=== PATIENT | female | born 1980 | race Caucasian/White ===

== ENCOUNTER 2016-08-23 00:01 | Inpatient (IN) | payer BC, MEDICAID ==
[2016-08-23] MEDS ORDERED: BUTORPHANOL TARTRATE 2 MG/ML VIAL IV PRN (00:03)
[2016-08-23] MEDS ORDERED: RINGERS SOLUTION,LACTATED 1,000 ML IV ONE (00:03)
[2016-08-23] MEDS ORDERED: INSULIN REGULAR HUMAN REC 100 UNITS in NORMAL SALINE 100 ML IV PRN (00:03)
[2016-08-23] MEDS ORDERED: ONDANSETRON HCL/PF 2 MG/ML VIAL IV PRN ×2 (00:03→10:17)
[2016-08-23] MEDS ORDERED: OXYTOCIN/DEXTROSE 5%-WATER 30 UNITS/500 ML BAG IV ONE ×3 (00:03→15:06)
[2016-08-23] MEDS ORDERED: LIDOCAINE HCL 50 ML VIAL PERI PRN (00:03)
--- OUTSIDE RECORDS SUMMARY | 2016-08-23 00:07 | XMS REPORT | Continuity of Care Document ---
:1980 Author Organization [facility] ([facility]) Address [place] [address] Phone [phone] Care Team Providers Name Role Phone Provider, No-Primary Care Primary Care Provider Unavailable Source Comments This disclosure is being made pursuant to the Care Everywhere program, applicable federal and state laws, and may not contain all informaitonavailable regarding this patient.[facility] ([facility]) Active Allergies and Adverse Reactions No Known Allergies Current Medications Prescription Sig. Disp. Refills Start Date End Date Status MULTIVIT Take by mouth. Active &MINERALS/FERROUS FUM (MULTI VITAMIN PO) desogestrel-ethinyl Take 1 Tab by mouth Active estradiol (RECLIPSEN, daily. 28,) tablet oxyCODONE-acetaminoph Take 1 Tab by mouth 10 Tab 0 04/02/2014 Active en 5-325 mg per every 4 hours as tablet needed. DO NOT EXCEED 3,000 MG ACETAMINOPHEN PER DAY FROM ALL SOURCES Indications: PAIN ibuprofen 800 mg Take 1 Tab by mouth 20 Tab 0 04/02/2014 Active tablet every 6 hours as needed for Pain. DO NOT EXCEED 3,200 MG IBUPROFEN PER DAY FROM ALL SOURCES Indications: PAIN Active Problems Not on file Social History Tobacco Use Types Packs/Day Years Used Date Current Every Day Smoker Cigarettes 0.5 15 Smokeless Tobacco: Never Used Tobacco Cessation:Ready to Quit: No; Counseling Given: No Comments: Last Filed Vital Signs Vital Sign Reading Time Taken Blood Pressure 119/68 04/02/2014 11:38 AM [employer] Pulse 85 04/02/2014 11:15 AM [employer] Temperature 36.9 C (98.4 F) 04/02/2014 11:15 AM [employer] Respiratory Rate - - Height 1.676 m (5' 5.98") 04/02/2014 11:15 AM [employer] Weight 69.4 kg (153 lb) 04/02/2014 11:15 AM [employer] Body Mass Index 24.71 04/02/2014 11:15 AM [employer] Oxygen Saturation 100% 04/02/2014 11:15 AM [employer] Plan of Care Health Maintenance Due Date Last Done Comments Hepatitis B Vaccine (1 of 3 - Primary Series) 1980 Tdap Vaccine 1993 Lipid Disorder Screening 02/09/2000 MMR Vaccine 02/09/2000 Td Vaccine 02/09/2000 Varicella Vaccine (1 of 2 - Adult - No Evidence of 02/09/2000 Immunity) Pneumococcal Vaccine (1 of 1 - PPSV23) 2001 Cervical Cancer Screening 02/09/2012 Influenza Vaccine: Seasonal (#1) 12/21/2015 Results from Last 3 Months Not on file
[2016-08-23 00:17] LABS: Hematocrit 33.7 % (37.0-47.0); Hemoglobin 11.8 gm/dL (12.5-16.0); Mean Cell Volume 88.5 fl (78-100); Mean Platelet Volume 8.9 fl (6.0-9.5); Neutrophil % 68.2 % (42-75.0); Platelet Count 186 K/mm3 (150-450); Red Blood Count 3.81 M/mm3 (4.2-5.4); Red Cell Distribution Width 12.3 % (11.5-14.0); White Blood Count 11.8 K/mm3 (4.0-10.5)
[2016-08-23 00:34] LABS: Albumin * 2.7 gm/dl (3.4-5.0); Anion Gap 13.6 mmol/L (6.8-13.8); BUN/Creatinine Ratio 20.6 (9.0-21.6); Bilirubin, Total 0.4 mg/dL (0.0-1.1); Calcium * 9.3 mg/dL (7.9-10.9); Carbon Dioxide 22.2 mmol/L (24-32.6); Potassium 3.8 mmol/L (3.4-4.6); Total Protein 7.4 gm/dL (6.2-8.2)
[2016-08-23] MEDS: RINGERS SOLUTION,LACTATED 1,000 ML IV PRN ×2 (00:47→11:08)
[2016-08-23] MEDS ORDERED: PENICILLIN G POTASSIUM 5 MILLIONUNT in DEXTROSE 5 % IN WATER 100 ML IV ONE ×2 (01:00)
[2016-08-23] MEDS: PENICILLIN G POTASSIUM 2.5 MILLIONUNT in DEXTROSE 5 % IN WATER 100 ML IV SCH ×6 (04:52→13:23)
--- NOTE | 2016-08-23 08:15 | PN ---
Progess Note - Interim Narrative: 08/23/16 08:13 Subjective-doing well complains of contractions 2 out of 10 Objective- SVE- 3-//-2, amniotomy performed with no fluid FHTs- 140s, moderate variability, positive accelerations, no decelerations [place]- 3-4 minutes on 18 milliunits of Pitocin Assessment and plan- Labor-induction Preeclampsia with our severe features Gestational diabetes-continue to monitor blood sugars Continue current plan of care.
[2016-08-23] MEDS ORDERED: NALOXONE HCL 1 MG/1 ML SYRG IV PRN (10:17)
[2016-08-23] MEDS ORDERED: BUPIVACAINE HCL/0.9 % NACL/PF 250 ML EP PRN (10:17)
[2016-08-23] MEDS ORDERED: fentaNYL CITRATE/PF 50 MCG/ML AMPUL IT SCH (10:30)
--- NOTE | 2016-08-23 12:16 | OR ---
Anesthesia Procedure Note - Anesthesia Procedure Note Narrative: Vital Signs - Last Taken Temp 36 C L 08/13/15 12:00 Pulse Resp BP 128/78 08/13/15 12:40 Pulse Ox 08/23/16 12:15 ANESTHESIA PROCEDURE NOTE Date of Procedure: 08/23/2016 Time of procedure: 10:30. Performed by: Felipe Herron CRNA Threshing Department Supervisor: None. Preprocedure diagnosis: Active labor. Post procedure diagnosis: Same. Procedure: Insertion of labor epidural. Indications: The patient is a 36 -year-old multigravida female in active labor requesting labor epidural for pain management. Findings: See below. Details of the procedure: The patient was placed in a sitting position. Back was prepped with DuraPrep. Patient was then draped in a sterile fashion. Lidocaine 1% was infiltrated to the skin and subcutaneous tissues at the level of the L3 4 interspace. The epidural space was identified using a 18-gauge Tuohy needle with [id number] technique. 20 mcg fentanyl was given intrathecally using a 27 ga. spinal needle. Epidural catheter was inserted without difficulty. Negative test dose was elicited using 5 mL of 1.5% preservative-free lidocaine plus epinephrine 1 200,000. The epidural catheter was then taped and secured in place. EBL: Minimal. Fluids: N/A. Specimen: N/A. Post procedure condition: The patient tolerated the procedure well. No complications were noted. Thank you for this consultation. Peters CRNA
--- NOTE | 2016-08-23 15:02 | OR ---
History for MU Definition: * The number of deliveries resulting in a live the patient experienced prior to current hospitalization * The previous delivery of live twins or any live multiple gestation is considered one live event. *If primagravida or nulliparous is documented select zero for the number of previous live births. Spontaneous Vaginal Delivery Viable male with APGARS of 9 at 1 min and 9 at 5 min. she delivered at 1443. Presentation was PRO. The left anterior shoulder delivered without difficulty followed by the posterior shoulder with a nuchal arm and the remainder of the baby. Spontaneous cry was noted. The baby was placed on the maternal abdomen. The cord was clamped and cut after approximately 1 minute. Weight: 6 pounds 15.9 ounces or 3174 g Placenta was delivered spontaneously and intact. A first degree right periurethral laceration was noted and hemostatic without repair. Estimated blood loss: 200 ml Mother and baby tolerated delivery well. Live Events: 1
[2016-08-23] MEDS ORDERED: GLYCERIN/WITCH HAZEL LEAF 40 APPL BOX TP PRN (15:06)
[2016-08-23] MEDS ORDERED: SENNOSIDES 8.6 MG TABLET PO PRN (15:06)
[2016-08-23] MEDS ORDERED: BISACODYL 10 MG SUPP.RECT RC PRN (15:06)
[2016-08-23] MEDS ORDERED: HYDROCORTISONE 30 APPL TUBE TP PRN (15:06)
[2016-08-23] MEDS ORDERED: BENZOCAINE/MENTHOL 81 SPRAY CAN TP PRN (15:06)
[2016-08-23] MEDS ORDERED: oxyCODONE HCL/ACETAMINOPHEN 1 TAB TABLET PO PRN (15:06)
[2016-08-23] MEDS: oxyCODONE HCL/ACETAMINOPHEN 1 TAB TABLET PO PRN ×2 (15:53→21:02)
[2016-08-23] MEDS: DOCUSATE SODIUM 100 MG CAPSULE PO SCH (21:01)
[2016-08-24] MEDS: oxyCODONE HCL/ACETAMINOPHEN 1 TAB TABLET PO PRN ×4 (00:33→20:09)
[2016-08-24] MEDS: IBUPROFEN 800 MG TABLET PO PRN ×2 (05:20→15:13)
--- NOTE | 2016-08-24 08:52 | PN ---
Progess Note - Interim Narrative: 08/24/16 08:51 progress note Subjective: The patient is doing well. She is ambulating, voiding, tolerating by mouth. She has minimal pain and moderate lochia. Objective: General: No acute distress Abdomen: Soft, nontender, fundus is firm just below the umbilicus Extremities: minimal edema, nontender to palpation Assessment and plan: day 1 Feeding: Breast Pain: Controlled with by mouth medication Gestational diabetes: Fasting blood sugar 71 and this morning, will monitor postprandials today Routine care.
[2016-08-24] MEDS: DOCUSATE SODIUM 100 MG CAPSULE PO SCH ×2 (09:20→20:09)
[2016-08-24] MEDS: PRENATAL VIT#96/FERROUS FUM/FA 1 TAB TABLET PO SCH (09:20)
[2016-08-25] MEDS: oxyCODONE HCL/ACETAMINOPHEN 1 TAB TABLET PO PRN ×2 (01:35→12:02)
[2016-08-25] MEDS: IBUPROFEN 800 MG TABLET PO PRN ×2 (01:35→09:14)
[2016-08-25] MEDS: DOCUSATE SODIUM 100 MG CAPSULE PO SCH (08:53)
[2016-08-25] MEDS: PRENATAL VIT#96/FERROUS FUM/FA 1 TAB TABLET PO SCH (08:53)
--- NOTE | 2016-08-25 09:38 | PN ---
Progess Note - Interim Narrative: 08/25/16 09:36 progress note Subjective: The patient is doing well. She is ambulating, voiding, tolerating by mouth. She has minimal pain and moderate lochia. Objective: General: No acute distress Abdomen: Soft, nontender, fundus is firm just below the umbilicus Extremities: minimal edema, nontender to palpation Assessment and plan: day 2 Feeding: Breast Pain: Controlled with by mouth medication control: Progesterone only mini pill Routine care. Gestational diabetes: Sporadically elevated blood sugars postdelivery while off of medication, plan to retest with a 2 hour GTT at 4-6 week visit 08/25/16 09:37
[2016-08-25 10:04] VITALS: BP 138/88
== END 2016-08-25 13:30 | disposition home or self-care (01) | DRG 775 ==
LOC: OB 00:01 → MS 08-24 05:41
PROVIDERS: ADMIT Obstetrics & Gynecology Gynecologic Oncology; ATTEND Obstetrics & Gynecology Gynecologic Oncology
PROC: 10E0XZZ Delivery of Products of Conception, External Approach (ICD-10-PCS; principal; 2016-08-23)
PROC: 10907ZC Drainage of Amniotic Fluid, Therapeutic from Products of Conception, Via Natural or Artificial Opening (ICD-10-PCS; 2016-08-23)
PROC: 3E033VJ Introduction of Other Hormone into Peripheral Vein, Percutaneous Approach (ICD-10-PCS; 2016-08-23)
PROC: 4A1HXCZ Monitoring of Products of Conception, Cardiac Rate, External Approach (ICD-10-PCS; 2016-08-23)
PROC: 3E0S3CZ (ICD-10-PCS; 2016-08-23)
DX: O14.04 Mild to moderate pre-eclampsia, complicating childbirth (principal); O69.81X0 Labor and delivery complicated by cord around neck, without compression, not applicable or unspecified; O70.0 First degree perineal laceration during delivery; O24.425 Gestational diabetes mellitus in childbirth, controlled by oral hypoglycemic drugs; Z3A.38 38 weeks gestation of pregnancy; Z37.0 Single live birth